=== PATIENT | female | born 1960 | race Caucasian/White ===

== ENCOUNTER → 2018-11-14 | Outpatient (CLI) | payer OTHER ==
[~2018-11-14] MED LIST: FLUTICASONE IH; LEXAPRO10 MG PO; LISINOPRIL10 MG PO; METOPROLOL TART25 MG PO; NORTRIPTYLINE H10 MG PO; OMEPRAZOLE40 MG PO; PROAIR HFA INH8.5 GM INH
== END ==
LOC: MAMMO 14:59
PROVIDERS: ATTEND Internal Medicine
DX: Z12.31 Encounter for screening mammogram for malignant neoplasm of breast (principal)
CPT/HCPCS: 77067

== ENCOUNTER → 2020-05-22 | Outpatient (CLI) | payer OTHER | LOC: MAMMO 09:08 | PROVIDERS: ATTEND Internal Medicine | DX: Z12.31 Encounter for screening mammogram for malignant neoplasm of breast (principal) | CPT/HCPCS: 77067 ==

== ENCOUNTER → 2020-10-04 | Outpatient (CLI) | payer OTHER | LOC: DX 10:37 | PROVIDERS: ATTEND Internal Medicine Gastroenterology | DX: R11.2 Nausea with vomiting, unspecified (principal); R12 Heartburn; K44.9 Diaphragmatic hernia without obstruction or gangrene | CPT/HCPCS: 74280 ==

== ENCOUNTER → 2022-04-24 | Outpatient (CLI) | payer OTHER | LOC: MAMMO 13:16 | PROVIDERS: ATTEND Internal Medicine | DX: Z12.31 Encounter for screening mammogram for malignant neoplasm of breast (principal) | CPT/HCPCS: 77067 ==